=== PATIENT | male | born 1955 | race Caucasian/White ===

== ENCOUNTER → 2017-09-12 | Outpatient (CLI) | payer OTHER ==
[~2017-09-12] MED LIST: ASPIRIN81 M1 PO; AUGMENTIN 875875 MG PO; CLARITIN10 MG PO; DEXILANT30 MG R; FERROUS SULFAT324 M1 PO; GLEEVEC400 M1 PO; GLEEVEC400 MG PO; GOOD NEIGHBOR150 MG PO; LISINOPRIL5 MG PO; METFORMIN500 MG PO; NEURONTIN300 MG PO; PLAVIX75 M1 PO; PLAVIX75 MG PO; PRAVACHOL20 MG PO; PRAVASTATIN SOD20 MG PO; PREDNICOT20 MG PO; PREVACID30 M2 PO; ROBITUSSIN DM 105 ML PO; TIMOLOL 0.5% OPH; TYLENOL W/CODEI1 TA4 PO; VIBRAMYCIN100 MG PO; ZESTRIL,PRINIVIL5 MG PO; ZITHROMAX Z PA250 MG PO; [UNRECOGNIZED DRUG - OTHER] OPH
[2017-09-12 09:35] LABS: EOS # 0.2 10*3/uL (0.0-0.4); EOS % 4.9 % (1.0-4.0); HEMATOCRIT 26.1 % (42.0-52.0); HEMOGLOBIN 8.2 g/dl (14.0-18.0); LYMPH # 1.1 10*3/uL (1.3-4.4); LYMPH % 28.5 % (27.0-41.0); MEAN CELL VOLUME 104.4 fl (80.0-94.0); MEAN CORPUSCULAR HGB 32.8 pg (27.0-31.0); MEAN CORPUSCULAR HGB CONC 31.4 g/dl (33.0-37.0); MEAN PLATELET VOLUME 10.3 fl (9.6-12.3); MONO # 0.3 10*3/uL (0.1-1.0); MONO % 8.5 % (3.0-9.0); NEUT # 2.2 10*3/uL (2.3-7.9); NEUT % 57.1 % (47.0-73.0); PLATELET COUNT AUTOMATED 139 10*3/uL (130-400); RED CELL DISTRI WIDTH 13.3 % (0-14.5); WHITE BLOOD COUNT 3.9 10*3/uL (4.8-10.8)
[2017-09-12 09:57] LABS: BILIRUBIN NEGATIVE (NEGATIVE); BLOOD NEGATIVE (NEGATIVE); CLARITY CLEAR (CLEAR); COLOR YELLOW (YELLOW); GLUCOSE NEGATIVE (NEGATIVE); KETONE NEGATIVE (NEGATIVE); LEUKO ESTERASE NEGATIVE (NEGATIVE); NITRITE NEGATIVE (NEGATIVE); PH 6.5 (5.0-9.0); SPECIFIC GRAVITY <= 1.005 (1.005-1.030); UROBILINOGEN 0.2 E.U./dl (0.2-1.0)
[2017-09-12 10:08] LABS: ALBUMIN 4.3 gm/dl (3.1-4.5); CREATININE 2.43 mg/dL (0.70-1.30); PHOSPHOROUS 3.3 mg/dL (2.5-4.9); POTASSIUM 4.9 mmol/L (3.5-5.1)
[2017-09-12 10:10] LABS: ALBUMIN 4.3 gm/dl (3.1-4.5); PHOSPHOROUS 3.2 mg/dL (2.5-4.9)
[2017-09-12 10:22] LABS: BACTERIA 1+; RBC 0-2 rbc/hpf (0-2); WBC 0-2 wbc/hpf (0-5)
[2017-09-12 11:23] LABS: FERRITIN 26.2 ng/mL (22.0-322.0); PTH INTACT 56.4 pg/mL (18.5-88.0); VITAMIN D, 25-HYDROXY 48.4 ng/mL (30-100)
[2017-09-13 08:08] LABS: MICRO ALBUMIN/CRE RATIO 77.8 (0.0-30.0)
== END | disposition home or self-care (01) ==
LOC: US 08:30 → LAB 08:39
PROVIDERS: Family Medicine; Internal Medicine Nephrology
DX: N18.4 Chronic kidney disease, stage 4 (severe) (principal); C92.10 Chronic myeloid leukemia, BCR/ABL-positive, not having achieved remission; N17.9 Acute kidney failure, unspecified; Z79.899 Other long term (current) drug therapy

== ENCOUNTER → 2017-10-14 | Outpatient (CLI) | payer OTHER ==
[2017-10-14 10:09] LABS: HEMATOCRIT 22.8 % (42.0-52.0); HEMOGLOBIN 7.2 g/dl (14.0-18.0)
[2017-10-14 10:16] LABS: BILIRUBIN NEGATIVE (NEGATIVE); BLOOD NEGATIVE (NEGATIVE); CLARITY CLEAR (CLEAR); COLOR YELLOW (YELLOW); GLUCOSE TRACE (NEGATIVE); KETONE NEGATIVE (NEGATIVE); LEUKO ESTERASE TRACE (NEGATIVE); NITRITE NEGATIVE (NEGATIVE); PH 6.5 (5.0-9.0); SPECIFIC GRAVITY <= 1.005 (1.005-1.030); UROBILINOGEN 0.2 E.U./dl (0.2-1.0)
[2017-10-14 10:38] LABS: CREATININE 1.77 mg/dL (0.70-1.30); PHOSPHOROUS 2.1 mg/dL (2.5-4.9); POTASSIUM 3.6 mmol/L (3.5-5.1)
[2017-10-14 10:44] LABS: THYROID STIM HORMONE (HS) 0.648 uIU/ml (0.358-4.75)
[2017-10-14 11:48] LABS: EPITHELIAL CELLS 0-2; WBC 0-2 wbc/hpf (0-5)
[2017-10-15 10:02] LABS: MICRO ALBUMIN/CRE RATIO 77.5 (0.0-30.0)
== END | disposition home or self-care (01) ==
LOC: LAB 09:46
PROVIDERS: Internal Medicine Nephrology
DX: E61.1 Iron deficiency (principal); Z79.899 Other long term (current) drug therapy

== ENCOUNTER → 2017-12-10 | Outpatient (CLI) | payer OTHER ==
[2017-12-10 12:45] LABS: HEMATOCRIT 26.2 % (42.0-52.0); HEMOGLOBIN 8.2 g/dl (14.0-18.0)
[2017-12-10 13:13] LABS: CREATININE 1.73 mg/dL (0.70-1.30)
== END | disposition home or self-care (01) ==
LOC: LAB 12:12
PROVIDERS: Internal Medicine Nephrology
DX: E61.1 Iron deficiency (principal)

== ENCOUNTER → 2017-12-24 | Outpatient (CLI) | payer OTHER ==
[2017-12-24 11:22] LABS: HEMATOCRIT 26.9 % (42.0-52.0); HEMOGLOBIN 8.8 g/dl (14.0-18.0)
[2017-12-24 11:40] LABS: CREATININE 1.77 mg/dL (0.70-1.30)
[2017-12-24 12:27] LABS: FERRITIN 34.9 ng/mL (22.0-322.0)
== END | disposition home or self-care (01) ==
LOC: LAB 10:20
PROVIDERS: Internal Medicine Nephrology
DX: E61.1 Iron deficiency (principal)

== ENCOUNTER → 2018-02-23 | Outpatient (CLI) | payer OTHER ==
[2018-02-23 10:25] LABS: ALBUMIN 3.8 gm/dl (3.1-4.5); CREATININE 1.88 mg/dL (0.70-1.30); POTASSIUM 3.9 mmol/L (3.5-5.1)
== END | disposition home or self-care (01) ==
LOC: LAB 09:10
PROVIDERS: Internal Medicine Nephrology
DX: N18.3 Chronic kidney disease, stage 3 (moderate) (principal)

== ENCOUNTER → 2018-03-23 | Outpatient (CLI) | payer OTHER ==
[2018-03-23 10:12] LABS: POTASSIUM 3.9 mmol/L (3.5-5.1)
[2018-03-23 10:19] LABS: CREATININE 1.78 mg/dL (0.70-1.30)
== END | disposition home or self-care (01) ==
LOC: LAB 09:21
PROVIDERS: Internal Medicine Nephrology
DX: N18.3 Chronic kidney disease, stage 3 (moderate) (principal)

== ENCOUNTER → 2018-04-20 | Outpatient (CLI) | payer OTHER ==
[2018-04-20 12:01] LABS: ALBUMIN 3.9 gm/dl (3.1-4.5); CREATININE 1.84 mg/dL (0.70-1.30)
== END | disposition home or self-care (01) ==
LOC: LAB 10:43
PROVIDERS: Internal Medicine Nephrology
DX: N18.3 Chronic kidney disease, stage 3 (moderate) (principal)

== ENCOUNTER → 2018-10-16 | Outpatient (CLI) | payer OTHER ==
[2018-10-16 09:59] LABS: ALBUMIN 3.9 gm/dl (3.1-4.5); CREATININE 1.69 mg/dL (0.70-1.30); POTASSIUM 4.3 mmol/L (3.5-5.1); TOTAL PROTEIN 7.1 gm/dL (6.4-8.2)
== END | disposition home or self-care (01) ==
LOC: LAB 08:49 → US 09:30
PROVIDERS: Registered Nurse Flight
DX: Z13.6 Encounter for screening for cardiovascular disorders (principal); E11.42 Type 2 diabetes mellitus with diabetic polyneuropathy; E78.00 Pure hypercholesterolemia, unspecified; R09.89 Other specified symptoms and signs involving the circulatory and respiratory systems; I10 Essential (primary) hypertension; E11.9 Type 2 diabetes mellitus without complications

== ENCOUNTER → 2019-01-18 | Outpatient (CLI) | payer OTHER ==
[2019-01-18 10:29] LABS: ALBUMIN 3.9 gm/dl (3.1-4.5); CREATININE 1.65 mg/dL (0.70-1.30); POTASSIUM 3.9 mmol/L (3.5-5.1); TOTAL PROTEIN 7.1 gm/dL (6.4-8.2)
== END | disposition home or self-care (01) ==
LOC: LAB 09:18
PROVIDERS: Registered Nurse Flight
DX: E11.42 Type 2 diabetes mellitus with diabetic polyneuropathy (principal); E78.00 Pure hypercholesterolemia, unspecified

== ENCOUNTER → 2019-03-19 | Outpatient (CLI) | payer MEDICARE ==
[2019-03-19 12:21] LABS: CREATININE 1.82 mg/dL (0.70-1.30); POTASSIUM 4.8 mmol/L (3.5-5.1)
== END | disposition home or self-care (01) ==
LOC: LAB 11:34
PROVIDERS: Internal Medicine Nephrology
DX: N17.9 Acute kidney failure, unspecified (principal)

== ENCOUNTER → 2019-04-14 | Outpatient (CLI) | payer MEDICARE ==
[2019-04-14 09:52] LABS: HEMATOCRIT 34.1 % (42.0-52.0); HEMOGLOBIN 11.1 g/dl (14.0-18.0); MEAN CELL VOLUME 102.4 fl (80.0-94.0); MEAN CORPUSCULAR HGB 33.3 pg (27.0-31.0); MEAN CORPUSCULAR HGB CONC 32.6 g/dl (33.0-37.0); MEAN PLATELET VOLUME 10.3 fl (9.6-12.3); RED BLOOD COUNT 3.33 10*6/uL (4.50-5.90); RED CELL DISTRI WIDTH 13.7 % (0-14.5); WHITE BLOOD COUNT 4.6 10*3/uL (4.8-10.8)
[2019-04-14 10:20] LABS: ALBUMIN 4.2 gm/dl (3.1-4.5); CREATININE 1.76 mg/dL (0.70-1.30); POTASSIUM 4.4 mmol/L (3.5-5.1); TOTAL PROTEIN 7.7 gm/dL (6.4-8.2)
== END | disposition home or self-care (01) ==
LOC: LAB 09:34
PROVIDERS: Registered Nurse Flight
DX: E11.22 Type 2 diabetes mellitus with diabetic chronic kidney disease (principal); N18.3 Chronic kidney disease, stage 3 (moderate); E78.00 Pure hypercholesterolemia, unspecified

== ENCOUNTER → 2019-07-12 | Outpatient (CLI) | payer MEDICARE ==
[2019-07-12 10:05] LABS: HEMATOCRIT 34.4 % (42.0-52.0); MEAN CELL VOLUME 98.6 fl (80.0-94.0); MEAN CORPUSCULAR HGB 32.7 pg (27.0-31.0); MEAN CORPUSCULAR HGB CONC 33.1 g/dl (33.0-37.0); MEAN PLATELET VOLUME 10.3 fl (9.6-12.3); RED BLOOD COUNT 3.49 10*6/uL (4.50-5.90); RED CELL DISTRI WIDTH 12.8 % (0-14.5); WHITE BLOOD COUNT 7.5 10*3/uL (4.8-10.8)
[2019-07-12 10:33] LABS: ALBUMIN 3.9 gm/dl (3.1-4.5); CREATININE 1.6 mg/dL (0.70-1.30); POTASSIUM 3.7 mmol/L (3.5-5.1); TOTAL PROTEIN 7.3 gm/dL (6.4-8.2)
== END | disposition home or self-care (01) ==
LOC: LAB 09:08
PROVIDERS: Registered Nurse Flight
DX: E11.22 Type 2 diabetes mellitus with diabetic chronic kidney disease (principal); N18.4 Chronic kidney disease, stage 4 (severe); E78.00 Pure hypercholesterolemia, unspecified

== ENCOUNTER → 2019-12-23 | Outpatient (CLI) | payer MEDICARE ==
[2019-12-23 11:16] LABS: BASO # 0.1 10*3/uL (0.0-0.1); EOS # 0.2 10*3/uL (0.0-0.4); EOS % 3.3 % (1.0-4.0); HEMATOCRIT 33.8 % (42.0-52.0); LYMPH # 1.7 10*3/uL (1.3-4.4); LYMPH % 28.5 % (27.0-41.0); MEAN CELL VOLUME 102.1 fl (80.0-94.0); MEAN CORPUSCULAR HGB 32.3 pg (27.0-31.0); MEAN CORPUSCULAR HGB CONC 31.7 g/dl (33.0-37.0); MEAN PLATELET VOLUME 10.3 fl (9.6-12.3); MONO # 0.4 10*3/uL (0.1-1.0); MONO % 6.6 % (3.0-9.0); NEUT # 3.6 10*3/uL (2.3-7.9); NEUT % 60.3 % (47.0-73.0); PLATELET COUNT AUTOMATED 259 10*3/uL (130-400); RED BLOOD COUNT 3.31 10*6/uL (4.50-5.90); RED CELL DISTRI WIDTH 13.2 % (0-14.5)
[2019-12-23 11:39] LABS: CREATININE 1.56 mg/dL (0.70-1.30)
== END | disposition home or self-care (01) ==
LOC: LAB 10:24
PROVIDERS: ATTEND Internal Medicine
DX: E11.9 Type 2 diabetes mellitus without complications (principal)

== ENCOUNTER → 2020-05-10 | Outpatient (CLI) | payer MEDICARE ==
[2020-05-10 11:43] LABS: BASO # 0.1 10*3/uL (0.0-0.1); EOS # 0.2 10*3/uL (0.0-0.4); EOS % 4.1 % (1.0-4.0); HEMATOCRIT 31.9 % (42.0-52.0); LYMPH # 1.3 10*3/uL (1.3-4.4); LYMPH % 24.2 % (27.0-41.0); MEAN CELL VOLUME 100.3 fl (80.0-94.0); MEAN CORPUSCULAR HGB 32.4 pg (27.0-31.0); MEAN CORPUSCULAR HGB CONC 32.3 g/dl (33.0-37.0); MONO # 0.3 10*3/uL (0.1-1.0); MONO % 5.6 % (3.0-9.0); NEUT # 3.4 10*3/uL (2.3-7.9); NEUT % 64.7 % (47.0-73.0); PLATELET COUNT AUTOMATED 161 10*3/uL (130-400); RED BLOOD COUNT 3.18 10*6/uL (4.50-5.90); RED CELL DISTRI WIDTH 13.4 % (0-14.5); WHITE BLOOD COUNT 5.2 10*3/uL (4.8-10.8)
[2020-05-10 12:13] LABS: CREATININE 1.58 mg/dL (0.70-1.30); TOTAL PROTEIN 7.1 gm/dL (6.4-8.2)
== END | disposition home or self-care (01) ==
LOC: LAB 11:20
PROVIDERS: Internal Medicine; ATTEND Physician Assistant Medical
DX: E11.9 Type 2 diabetes mellitus without complications (principal); D50.9 Iron deficiency anemia, unspecified

== ENCOUNTER → 2020-07-27 | Outpatient (CLI) | payer MEDICARE ==
[2020-07-27 10:22] LABS: BASO # 0.1 10*3/uL (0.0-0.1); BASO % 0.8 % (0.0-1.0); EOS # 0.2 10*3/uL (0.0-0.4); HEMATOCRIT 33.5 % (42.0-52.0); LYMPH # 1.2 10*3/uL (1.3-4.4); LYMPH % 17.6 % (27.0-41.0); MEAN CELL VOLUME 102.4 fl (80.0-94.0); MEAN CORPUSCULAR HGB 33.6 pg (27.0-31.0); MEAN CORPUSCULAR HGB CONC 32.8 g/dl (33.0-37.0); MEAN PLATELET VOLUME 9.7 fl (9.6-12.3); MONO # 0.5 10*3/uL (0.1-1.0); MONO % 6.9 % (3.0-9.0); NEUT # 4.8 10*3/uL (2.3-7.9); NEUT % 71.4 % (47.0-73.0); PLATELET COUNT AUTOMATED 188 10*3/uL (130-400); RED BLOOD COUNT 3.27 10*6/uL (4.50-5.90); RED CELL DISTRI WIDTH 13.2 % (0-14.5); WHITE BLOOD COUNT 6.7 10*3/uL (4.8-10.8)
[2020-07-27 10:41] LABS: CREATININE 1.64 mg/dL (0.70-1.30); POTASSIUM 4.3 mmol/L (3.5-5.1)
[2020-07-27 10:44] LABS: CHOLESTEROL 74 mg/dL (<200); LDL CHOLESTEROL 28 mg/dL (9-159); TRIGLYCERIDES 61 mg/dl (<150)
[2020-07-27 11:13] LABS: PTH INTACT 35.8 pg/mL (18.5-88.0); VITAMIN D, 25-HYDROXY 51.2 ng/mL (30-100)
== END | disposition home or self-care (01) ==
LOC: LAB 09:55
PROVIDERS: Internal Medicine; ATTEND Internal Medicine Nephrology
DX: I12.9 Hypertensive chronic kidney disease with stage 1 through stage 4 chronic kidney disease, or unspecified chronic kidney disease (principal); E11.22 Type 2 diabetes mellitus with diabetic chronic kidney disease; N18.30 Chronic kidney disease, stage 3 unspecified; N25.81 Secondary hyperparathyroidism of renal origin

== ENCOUNTER → 2021-01-25 | Outpatient (CLI) | payer MEDICARE, OTHER ==
[2021-01-25 10:57] LABS: BASO # 0.1 10*3/uL (0.0-0.1); BASO % 1.4 % (0.0-1.0); EOS # 0.1 10*3/uL (0.0-0.4); EOS % 3.2 % (1.0-4.0); HEMATOCRIT 34.1 % (42.0-52.0); LYMPH # 1.3 10*3/uL (1.3-4.4); LYMPH % 29.1 % (27.0-41.0); MEAN CELL VOLUME 102.1 fl (80.0-94.0); MEAN CORPUSCULAR HGB 33.5 pg (27.0-31.0); MEAN CORPUSCULAR HGB CONC 32.8 g/dl (33.0-37.0); MEAN PLATELET VOLUME 10.2 fl (9.6-12.3); MONO # 0.3 10*3/uL (0.1-1.0); NEUT # 2.6 10*3/uL (2.3-7.9); NEUT % 59.1 % (47.0-73.0); PLATELET COUNT AUTOMATED 170 10*3/uL (130-400); RED BLOOD COUNT 3.34 10*6/uL (4.50-5.90); RED CELL DISTRI WIDTH 13.4 % (0-14.5); WHITE BLOOD COUNT 4.4 10*3/uL (4.8-10.8)
[2021-01-25 11:20] LABS: CREATININE 1.57 mg/dL (0.70-1.30)
== END | disposition home or self-care (01) ==
LOC: LAB 10:28
PROVIDERS: Internal Medicine; ATTEND Physician Assistant Medical
DX: I12.9 Hypertensive chronic kidney disease with stage 1 through stage 4 chronic kidney disease, or unspecified chronic kidney disease (principal); E11.22 Type 2 diabetes mellitus with diabetic chronic kidney disease; N18.32 Chronic kidney disease, stage 3b; N25.81 Secondary hyperparathyroidism of renal origin; D64.9 Anemia, unspecified

== ENCOUNTER → 2021-06-07 | Outpatient (CLI) | payer MEDICARE, OTHER | END | disposition home or self-care (01) | LOC: LAB 15:40 | PROVIDERS: ATTEND Physician Assistant | DX: C92.10 Chronic myeloid leukemia, BCR/ABL-positive, not having achieved remission (principal); N18.4 Chronic kidney disease, stage 4 (severe); D64.9 Anemia, unspecified; E53.8 Deficiency of other specified B group vitamins ==

== ENCOUNTER → 2021-06-19 | Outpatient (CLI) | payer MEDICARE, OTHER | END | disposition home or self-care (01) | LOC: RAD 14:57 | PROVIDERS: ATTEND Podiatrist | DX: L97.529 Non-pressure chronic ulcer of other part of left foot with unspecified severity (principal) ==

== ENCOUNTER → 2021-09-11 | Outpatient (CLI) | payer MEDICARE, OTHER ==
[2021-09-11 16:59] LABS: BASO # 0.1 10*3/uL (0.0-0.1); BASO % 0.9 % (0.0-1.0); EOS # 0.2 10*3/uL (0.0-0.4); EOS % 3.9 % (1.0-4.0); HEMATOCRIT 32.3 % (42.0-52.0); LYMPH # 1.4 10*3/uL (1.3-4.4); LYMPH % 26.8 % (27.0-41.0); MEAN CORPUSCULAR HGB 33.7 pg (27.0-31.0); MEAN CORPUSCULAR HGB CONC 33.7 g/dl (33.0-37.0); MONO # 0.4 10*3/uL (0.1-1.0); MONO % 7.3 % (3.0-9.0); NEUT # 3.2 10*3/uL (2.3-7.9); NEUT % 60.9 % (47.0-73.0); PLATELET COUNT AUTOMATED 218 10*3/uL (130-400); RED BLOOD COUNT 3.23 10*6/uL (4.50-5.90); RED CELL DISTRI WIDTH 13.5 % (0-14.5); WHITE BLOOD COUNT 5.3 10*3/uL (4.8-10.8)
[2021-09-11 17:12] LABS: ACT PARTIAL THROMBO TIME 26.5 SECONDS (20.0-32.1)
[2021-09-11 17:13] LABS: CREATININE 1.5 mg/dL (0.70-1.30); POTASSIUM 3.7 mmol/L (3.5-5.1)
[2021-09-11 17:21] LABS: THYROID STIM HORMONE (HS) 0.54 uIU/ml (0.358-4.75)
== END | disposition home or self-care (01) ==
LOC: LAB 16:26
PROVIDERS: Internal Medicine; Surgery Vascular Surgery; ATTEND Internal Medicine Hematology & Oncology
DX: E11.22 Type 2 diabetes mellitus with diabetic chronic kidney disease (principal); N18.4 Chronic kidney disease, stage 4 (severe); C92.10 Chronic myeloid leukemia, BCR/ABL-positive, not having achieved remission; E53.8 Deficiency of other specified B group vitamins; D63.1 Anemia in chronic kidney disease; I73.9 Peripheral vascular disease, unspecified; Z01.818 Encounter for other preprocedural examination; I45.10 Unspecified right bundle-branch block; I44.4 Left anterior fascicular block

== ENCOUNTER → 2021-09-14 | Outpatient (CLI) | payer MEDICARE, OTHER | LOC: MRI 00:05 | PROVIDERS: ATTEND Podiatrist | DX: M65.871 Other synovitis and tenosynovitis, right ankle and foot (principal); M86.171 Other acute osteomyelitis, right ankle and foot; M48.8X4 Other specified spondylopathies, thoracic region ==

== ENCOUNTER → 2021-09-25 | Outpatient (CLI) | payer MEDICARE, OTHER ==
[2021-09-25 15:49] LABS: BASO # 0.1 10*3/uL (0.0-0.1); BASO % 1.1 % (0.0-1.0); EOS # 0.2 10*3/uL (0.0-0.4); EOS % 3.4 % (1.0-4.0); HEMATOCRIT 33.5 % (42.0-52.0); LYMPH # 1.6 10*3/uL (1.3-4.4); MEAN CELL VOLUME 100.9 fl (80.0-94.0); MEAN CORPUSCULAR HGB 33.7 pg (27.0-31.0); MEAN CORPUSCULAR HGB CONC 33.4 g/dl (33.0-37.0); MEAN PLATELET VOLUME 9.8 fl (9.6-12.3); MONO # 0.4 10*3/uL (0.1-1.0); MONO % 7.8 % (3.0-9.0); NEUT # 2.3 10*3/uL (2.3-7.9); NEUT % 51.3 % (47.0-73.0); PLATELET COUNT AUTOMATED 228 10*3/uL (130-400); RED BLOOD COUNT 3.32 10*6/uL (4.50-5.90); RED CELL DISTRI WIDTH 13.1 % (0-14.5); WHITE BLOOD COUNT 4.5 10*3/uL (4.8-10.8)
[2021-09-25 16:01] LABS: CREATININE 1.79 mg/dL (0.70-1.30); POTASSIUM 3.9 mmol/L (3.5-5.1)
== END | disposition home or self-care (01) ==
LOC: LAB 15:33
PROVIDERS: ATTEND Surgery Vascular Surgery
DX: I73.9 Peripheral vascular disease, unspecified (principal); Z79.899 Other long term (current) drug therapy

== ENCOUNTER → 2021-10-01 | Outpatient (CLI) | payer MEDICARE, OTHER ==
[2021-10-01 15:02] LABS: CREATININE 1.46 mg/dL (0.70-1.30); POTASSIUM 3.9 mmol/L (3.5-5.1)
== END | disposition home or self-care (01) ==
LOC: LAB 14:30
PROVIDERS: ATTEND Surgery Vascular Surgery
DX: I73.9 Peripheral vascular disease, unspecified (principal); Z01.812 Encounter for preprocedural laboratory examination; R79.1 Abnormal coagulation profile

== ENCOUNTER → 2021-10-08 | Outpatient (CLI) | payer MEDICARE, OTHER ==
[2021-10-08 11:25] LABS: BASO # 0.1 10*3/uL (0.0-0.1); BASO % 1.1 % (0.0-1.0); EOS # 0.2 10*3/uL (0.0-0.4); EOS % 3.2 % (1.0-4.0); LYMPH # 1.2 10*3/uL (1.3-4.4); LYMPH % 21.9 % (27.0-41.0); MEAN CELL VOLUME 101.8 fl (80.0-94.0); MEAN CORPUSCULAR HGB 33.8 pg (27.0-31.0); MEAN CORPUSCULAR HGB CONC 33.2 g/dl (33.0-37.0); MEAN PLATELET VOLUME 10.5 fl (9.6-12.3); MONO # 0.4 10*3/uL (0.1-1.0); MONO % 6.7 % (3.0-9.0); NEUT # 3.7 10*3/uL (2.3-7.9); NEUT % 66.9 % (47.0-73.0); PLATELET COUNT AUTOMATED 196 10*3/uL (130-400); RED BLOOD COUNT 3.34 10*6/uL (4.50-5.90); RED CELL DISTRI WIDTH 12.5 % (0-14.5); WHITE BLOOD COUNT 5.6 10*3/uL (4.8-10.8)
[2021-10-08 11:35] LABS: ACT PARTIAL THROMBO TIME 26.8 SECONDS (20.0-32.1); INTERNATIONAL NORM RATIO 0.9 (2.0-3.5)
[2021-10-08 12:19] LABS: POTASSIUM 4.1 mmol/L (3.5-5.1)
[2021-10-08 12:22] LABS: CREATININE 1.6 mg/dL (0.70-1.30)
== END | disposition home or self-care (01) ==
LOC: LAB 10:40 → EDSTATUS 10:48 → LAB 10:50
PROVIDERS: ATTEND Surgery Vascular Surgery
DX: Z01.812 Encounter for preprocedural laboratory examination (principal); I73.9 Peripheral vascular disease, unspecified; R79.1 Abnormal coagulation profile

== ENCOUNTER → 2021-11-01 | Outpatient (CLI) | payer MEDICARE, OTHER ==
[2021-11-01 11:33] LABS: BASO # 0.1 10*3/uL (0.0-0.1); BASO % 0.6 % (0.0-1.0); EOS # 0.1 10*3/uL (0.0-0.4); EOS % 1.1 % (1.0-4.0); HEMATOCRIT 32.6 % (42.0-52.0); LYMPH % 10.7 % (27.0-41.0); MEAN CELL VOLUME 104.8 fl (80.0-94.0); MEAN CORPUSCULAR HGB 34.7 pg (27.0-31.0); MEAN CORPUSCULAR HGB CONC 33.1 g/dl (33.0-37.0); MEAN PLATELET VOLUME 10.3 fl (9.6-12.3); MONO # 0.5 10*3/uL (0.1-1.0); MONO % 5.4 % (3.0-9.0); NEUT # 7.3 10*3/uL (2.3-7.9); NEUT % 81.9 % (47.0-73.0); PLATELET COUNT AUTOMATED 175 10*3/uL (130-400); RED BLOOD COUNT 3.11 10*6/uL (4.50-5.90); RED CELL DISTRI WIDTH 13.1 % (0-14.5); WHITE BLOOD COUNT 8.9 10*3/uL (4.8-10.8)
[2021-11-01 11:56] LABS: CREATININE 1.61 mg/dL (0.70-1.30); POTASSIUM 3.6 mmol/L (3.5-5.1); TOTAL PROTEIN 6.9 gm/dL (6.4-8.2); URIC ACID 4.8 mg/dL (3.5-7.2)
[2021-11-01 12:18] LABS: VITAMIN D, 25-HYDROXY 26.2 ng/mL (30-100)
[2021-11-01 13:20] LABS: BILIRUBIN Negative (Negative); BLOOD Trace-Lysed (Negative); CLARITY Clear (Clear); COLOR Yellow (Yellow); GLUCOSE 2+ (Negative); KETONE Negative (Negative); LEUKO ESTERASE Negative (Negative); NITRITE Negative (Negative); PH 6.5 (4.5-8.0); SPECIFIC GRAVITY <= 1.005 (1.001-1.030); UROBILINOGEN 0.2 E.U./dl (0.0-1.0)
[2021-11-01 13:32] LABS: RBC 0-2 rbc/hpf (0-2); WBC 0-2 wbc/hpf (0-5)
[2021-11-01 13:34] LABS: URINE CREATININE RANDOM < 13.00 mg/dL
== END | disposition home or self-care (01) ==
LOC: LAB 11:07
PROVIDERS: ATTEND Internal Medicine Nephrology
DX: I12.9 Hypertensive chronic kidney disease with stage 1 through stage 4 chronic kidney disease, or unspecified chronic kidney disease (principal); N18.32 Chronic kidney disease, stage 3b; N25.81 Secondary hyperparathyroidism of renal origin

== ENCOUNTER → 2021-11-19 | Outpatient (CLI) | payer MEDICARE, OTHER ==
[2021-11-19 12:24] LABS: BASO # 0.1 10*3/uL (0.0-0.1); BASO % 0.9 % (0.0-1.0); EOS # 0.1 10*3/uL (0.0-0.4); EOS % 1.5 % (1.0-4.0); HEMATOCRIT 35.2 % (42.0-52.0); LYMPH # 1.2 10*3/uL (1.3-4.4); LYMPH % 21.1 % (27.0-41.0); MEAN CELL VOLUME 103.2 fl (80.0-94.0); MEAN PLATELET VOLUME 10.2 fl (9.6-12.3); MONO # 0.5 10*3/uL (0.1-1.0); MONO % 8.4 % (3.0-9.0); NEUT # 3.9 10*3/uL (2.3-7.9); NEUT % 67.8 % (47.0-73.0); PLATELET COUNT AUTOMATED 258 10*3/uL (130-400); RED BLOOD COUNT 3.41 10*6/uL (4.50-5.90); RED CELL DISTRI WIDTH 12.9 % (0-14.5); WHITE BLOOD COUNT 5.8 10*3/uL (4.8-10.8)
[2021-11-19 12:43] LABS: CREATININE 1.59 mg/dL (0.70-1.30); POTASSIUM 4.2 mmol/L (3.5-5.1)
== END ==
LOC: LAB 12:01
PROVIDERS: ATTEND Internal Medicine
DX: E11.22 Type 2 diabetes mellitus with diabetic chronic kidney disease (principal); N18.32 Chronic kidney disease, stage 3b; N25.81 Secondary hyperparathyroidism of renal origin; I70.201 Unspecified atherosclerosis of native arteries of extremities, right leg

== ENCOUNTER → 2022-03-05 | Outpatient (CLI) | payer MEDICARE, OTHER ==
[2022-03-05 14:16] LABS: BASO # 0.1 10*3/uL (0.0-0.1); EOS # 0.1 10*3/uL (0.0-0.4); EOS % 1.3 % (1.0-4.0); HEMATOCRIT 37.7 % (42.0-52.0); LYMPH # 1.5 10*3/uL (1.3-4.4); MEAN CELL VOLUME 101.3 fl (80.0-94.0); MEAN CORPUSCULAR HGB 33.6 pg (27.0-31.0); MEAN CORPUSCULAR HGB CONC 33.2 g/dl (33.0-37.0); MEAN PLATELET VOLUME 9.8 fl (9.6-12.3); MONO # 0.4 10*3/uL (0.1-1.0); MONO % 6.7 % (3.0-9.0); NEUT # 4.2 10*3/uL (2.3-7.9); NEUT % 66.7 % (47.0-73.0); PLATELET COUNT AUTOMATED 220 10*3/uL (130-400); RED BLOOD COUNT 3.72 10*6/uL (4.50-5.90); RED CELL DISTRI WIDTH 12.8 % (0-14.5); WHITE BLOOD COUNT 6.3 10*3/uL (4.8-10.8)
[2022-03-05 14:33] LABS: POTASSIUM 4.1 mmol/L (3.4-5.1)
== END | disposition home or self-care (01) ==
LOC: LAB 13:46
PROVIDERS: ATTEND Internal Medicine Hematology & Oncology
DX: C92.10 Chronic myeloid leukemia, BCR/ABL-positive, not having achieved remission (principal); N18.4 Chronic kidney disease, stage 4 (severe); D63.8 Anemia in other chronic diseases classified elsewhere; E53.8 Deficiency of other specified B group vitamins

== ENCOUNTER → 2022-03-12 | Outpatient (CLI) | payer MEDICARE, OTHER ==
[2022-03-12 10:29] LABS: BASO % 0.6 % (0.0-1.0); EOS # 0.1 10*3/uL (0.0-0.4); EOS % 2.1 % (1.0-4.0); HEMATOCRIT 37.7 % (42.0-52.0); LYMPH # 1.2 10*3/uL (1.3-4.4); LYMPH % 17.5 % (27.0-41.0); MEAN CELL VOLUME 100.8 fl (80.0-94.0); MEAN CORPUSCULAR HGB 33.2 pg (27.0-31.0); MEAN CORPUSCULAR HGB CONC 32.9 g/dl (33.0-37.0); MONO # 0.4 10*3/uL (0.1-1.0); MONO % 6.1 % (3.0-9.0); NEUT # 4.8 10*3/uL (2.3-7.9); NEUT % 73.2 % (47.0-73.0); PLATELET COUNT AUTOMATED 234 10*3/uL (130-400); RED BLOOD COUNT 3.74 10*6/uL (4.50-5.90); RED CELL DISTRI WIDTH 13.1 % (0-14.5); WHITE BLOOD COUNT 6.6 10*3/uL (4.8-10.8)
[2022-03-12 10:40] LABS: ACT PARTIAL THROMBO TIME 25.6 SECONDS (20.0-32.1); INTERNATIONAL NORM RATIO 0.9 (2.0-3.5)
[2022-03-12 10:44] LABS: POTASSIUM 4.1 mmol/L (3.4-5.1)
== END | disposition home or self-care (01) ==
LOC: LAB 10:00
PROVIDERS: ATTEND Surgery Vascular Surgery
DX: Z01.818 Encounter for other preprocedural examination (principal); I45.2 Bifascicular block; I51.7 Cardiomegaly; R79.1 Abnormal coagulation profile; I73.9 Peripheral vascular disease, unspecified

== ENCOUNTER → 2022-03-20 | Outpatient (CLI) | payer MEDICARE, OTHER ==
[2022-03-20 11:11] LABS: CHOLESTEROL 169 mg/dL (<200); LDL CHOLESTEROL 108 mg/dL (9-159); TRIGLYCERIDES 106 mg/dl (<150)
== END | disposition home or self-care (01) ==
LOC: LAB 10:12
PROVIDERS: ATTEND Internal Medicine
DX: E11.9 Type 2 diabetes mellitus without complications (principal)

== ENCOUNTER → 2022-05-31 | Outpatient (CLI) | payer MEDICARE, OTHER ==
[~2022-05-31] MED LIST changes: +AMLODIPINE BESYL5 MG PO; +B-100 COMPLEX100 MG PO; +FARXIGA5 M1 PO; +PANTOPRAZOLE SO40 MG PO; +PIOGLITAZONE HC30 MG PO
[2022-05-31 15:37] LABS: BASO # 0.1 10*3/uL (0.0-0.1); BASO % 0.9 % (0.0-1.0); EOS # 0.1 10*3/uL (0.0-0.4); EOS % 1.9 % (1.0-4.0); HEMATOCRIT 36.5 % (42.0-52.0); LYMPH # 1.6 10*3/uL (1.3-4.4); LYMPH % 26.8 % (27.0-41.0); MEAN CELL VOLUME 100.6 fl (80.0-94.0); MEAN CORPUSCULAR HGB 32.8 pg (27.0-31.0); MEAN CORPUSCULAR HGB CONC 32.6 g/dl (33.0-37.0); MEAN PLATELET VOLUME 10.1 fl (9.6-12.3); MONO # 0.4 10*3/uL (0.1-1.0); MONO % 7.3 % (3.0-9.0); NEUT # 3.7 10*3/uL (2.3-7.9); NEUT % 62.9 % (47.0-73.0); PLATELET COUNT AUTOMATED 242 10*3/uL (130-400); RED BLOOD COUNT 3.63 10*6/uL (4.50-5.90); RED CELL DISTRI WIDTH 13.6 % (0-14.5); WHITE BLOOD COUNT 5.8 10*3/uL (4.8-10.8)
[2022-05-31 15:55] LABS: ACT PARTIAL THROMBO TIME 25.7 SECONDS (20.0-32.1)
[2022-05-31 15:58] LABS: POTASSIUM 3.5 mmol/L (3.4-5.1)
== END | disposition home or self-care (01) ==
LOC: LAB 15:21
PROVIDERS: ATTEND Surgery Vascular Surgery
DX: Z01.818 Encounter for other preprocedural examination (principal); I73.9 Peripheral vascular disease, unspecified; R79.1 Abnormal coagulation profile; I45.10 Unspecified right bundle-branch block; M47.814 Spondylosis without myelopathy or radiculopathy, thoracic region; M48.04 Spinal stenosis, thoracic region; M25.78 Osteophyte, vertebrae

== ENCOUNTER → 2022-07-09 | Outpatient (CLI) | payer MEDICARE, OTHER ==
[2022-07-09 12:48] LABS: BASO % 0.3 % (0.0-1.0); HEMATOCRIT 34.5 % (42.0-52.0); LYMPH # 1.3 10*3/uL (1.3-4.4); LYMPH % 19.1 % (27.0-41.0); MEAN CELL VOLUME 100.6 fl (80.0-94.0); MEAN CORPUSCULAR HGB 32.7 pg (27.0-31.0); MEAN CORPUSCULAR HGB CONC 32.5 g/dl (33.0-37.0); MEAN PLATELET VOLUME 10.6 fl (9.6-12.3); MONO # 0.4 10*3/uL (0.1-1.0); MONO % 5.8 % (3.0-9.0); NEUT # 5.1 10*3/uL (2.3-7.9); NEUT % 74.2 % (47.0-73.0); PLATELET COUNT AUTOMATED 280 10*3/uL (130-400); RED BLOOD COUNT 3.43 10*6/uL (4.50-5.90); RED CELL DISTRI WIDTH 13.7 % (0-14.5); WHITE BLOOD COUNT 6.9 10*3/uL (4.8-10.8)
[2022-07-09 13:01] LABS: ACT PARTIAL THROMBO TIME 23.6 SECONDS (20.0-32.1)
== END | disposition home or self-care (01) ==
LOC: LAB 11:56
PROVIDERS: ATTEND Surgery Vascular Surgery
DX: Z01.818 Encounter for other preprocedural examination (principal); I45.2 Bifascicular block; R79.1 Abnormal coagulation profile; I73.9 Peripheral vascular disease, unspecified

== ENCOUNTER 2022-08-19 15:18 | Emergency (ER) | payer MEDICARE, OTHER ==
[~2022-08-19] VITALS: Wt 77.1 kg
[2022-08-19 20:15] LABS: BASO # 0.1 10*3/uL (0.0-0.1); BASO % 0.6 % (0.0-1.0); EOS # 0.1 10*3/uL (0.0-0.4); EOS % 0.8 % (1.0-4.0); LYMPH # 0.8 10*3/uL (1.3-4.4); LYMPH % 8.7 % (27.0-41.0); MEAN CELL VOLUME 102.4 fl (80.0-94.0); MEAN CORPUSCULAR HGB 32.8 pg (27.0-31.0); MEAN PLATELET VOLUME 9.9 fl (9.6-12.3); MONO # 0.6 10*3/uL (0.1-1.0); MONO % 6.2 % (3.0-9.0); NEUT # 7.9 10*3/uL (2.3-7.9); NEUT % 83.4 % (47.0-73.0); PLATELET COUNT AUTOMATED 306 10*3/uL (130-400); RED BLOOD COUNT 2.93 10*6/uL (4.50-5.90); RED CELL DISTRI WIDTH 15.2 % (0-14.5); WHITE BLOOD COUNT 9.5 10*3/uL (4.8-10.8)
[2022-08-19 20:35] LABS: POTASSIUM 3.5 mmol/L (3.4-5.1)
[2022-08-19 23:33] VITALS: BP 165/65
[2022-08-20] MEDS ORDERED: VIBRAMYCIN100 MG PO (02:01)
[2022-08-20] MEDS ORDERED: CEPHALEXIN500 M1 PO (02:01)
[2022-08-20] MEDS ORDERED: HYDROCODONE-AC1 EAC1 PO (02:03)
== END 2022-08-20 02:04 | disposition home or self-care (01) ==
LOC: ED 15:18
PROVIDERS: Emergency Medicine
DX: E11.621 Type 2 diabetes mellitus with foot ulcer (principal); L97.519 Non-pressure chronic ulcer of other part of right foot with unspecified severity; L03.115 Cellulitis of right lower limb; J45.909 Unspecified asthma, uncomplicated; I10 Essential (primary) hypertension; Z98.890 Other specified postprocedural states

== ENCOUNTER → 2022-09-02 | Outpatient (CLI) | payer MEDICARE, OTHER ==
[~2022-09-02] MED LIST changes: +CEPHALEXIN500 M1 PO; +HYDROCODONE-AC1 EAC1 PO
== END | disposition home or self-care (01) ==
LOC: WOUNDCARE 00:48
PROVIDERS: ATTEND Nurse Practitioner Primary Care
DX: E11.621 Type 2 diabetes mellitus with foot ulcer (principal); L97.511 Non-pressure chronic ulcer of other part of right foot limited to breakdown of skin; L84 Corns and callosities; L03.115 Cellulitis of right lower limb; E78.5 Hyperlipidemia, unspecified; I10 Essential (primary) hypertension; E11.39 Type 2 diabetes mellitus with other diabetic ophthalmic complication; H42 Glaucoma in diseases classified elsewhere; K21.9 Gastro-esophageal reflux disease without esophagitis; Z87.891 Personal history of nicotine dependence

== ENCOUNTER → 2022-09-09 | Outpatient (CLI) | payer MEDICARE, OTHER | END | disposition home or self-care (01) | LOC: WOUNDCARE 02:05 | PROVIDERS: ATTEND Nurse Practitioner Family | DX: E11.621 Type 2 diabetes mellitus with foot ulcer (principal); L97.512 Non-pressure chronic ulcer of other part of right foot with fat layer exposed; L84 Corns and callosities; L03.115 Cellulitis of right lower limb; E78.5 Hyperlipidemia, unspecified; I10 Essential (primary) hypertension; E11.39 Type 2 diabetes mellitus with other diabetic ophthalmic complication; H42 Glaucoma in diseases classified elsewhere; K21.9 Gastro-esophageal reflux disease without esophagitis; Z87.891 Personal history of nicotine dependence ==

== ENCOUNTER → 2023-03-21 | Outpatient (CLI) | payer MEDICARE, OTHER ==
[2023-03-21 15:22] LABS: ACT PARTIAL THROMBO TIME 27.8 SECONDS (20.0-32.1)
[2023-03-21 15:41] LABS: BUN 18 mg/dl (9-23); CHLORIDE 104 mmol/L (98-107); POTASSIUM 3.9 mmol/L (3.4-5.1)
== END | disposition home or self-care (01) ==
LOC: LAB 14:23
PROVIDERS: ATTEND Surgery Vascular Surgery
DX: Z01.818 Encounter for other preprocedural examination (principal); I45.2 Bifascicular block; I73.9 Peripheral vascular disease, unspecified; R79.1 Abnormal coagulation profile; M43.24 Fusion of spine, thoracic region

== ENCOUNTER → 2023-03-22 | Outpatient (CLI) | payer MEDICARE, OTHER ==
[2023-03-22 10:49] LABS: BASO % 0.8 % (0.0-1.0); EOS # 0.3 10*3/uL (0.0-0.4); EOS % 4.9 % (1.0-4.0); HEMATOCRIT 35.8 % (42.0-52.0); LYMPH # 1.5 10*3/uL (1.3-4.4); LYMPH % 29.8 % (27.0-41.0); MEAN CELL VOLUME 100.8 fl (80.0-94.0); MEAN CORPUSCULAR HGB 31.5 pg (27.0-31.0); MEAN CORPUSCULAR HGB CONC 31.3 g/dl (33.0-37.0); MEAN PLATELET VOLUME 10.6 fl (9.6-12.3); MONO # 0.4 10*3/uL (0.1-1.0); MONO % 7.1 % (3.0-9.0); NEUT # 2.9 10*3/uL (2.3-7.9); PLATELET COUNT AUTOMATED 130 10*3/uL (130-400); RED BLOOD COUNT 3.55 10*6/uL (4.50-5.90); WHITE BLOOD COUNT 5.1 10*3/uL (4.8-10.8)
== END | disposition home or self-care (01) ==
LOC: LAB 10:35
PROVIDERS: Surgery Vascular Surgery; ATTEND Internal Medicine Endocrinology, Diabetes & Metabolism
DX: I73.9 Peripheral vascular disease, unspecified (principal); R79.1 Abnormal coagulation profile